=== PATIENT | female | born 1965 | race Caucasian/White ===

== ENCOUNTER 2018-07-12 19:59 | Inpatient (IN) ==
[2018-07-12] MEDS ORDERED: Morphine Inj 4 MG/ML Vial ONE ×2 (20:05→20:44)
[2018-07-12] MEDS ORDERED: Diphtheria/Tetanus/Pertussis Vaccine Inj 0.5 ML Syringe IM ONE (20:27)
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
[2018-07-12 21:02] LABS: Baso % (Auto) 0.1 % (0.0-2.0); Eos # (Auto) 0.1 th/mm3 (0.0-0.4); Eos % (Auto) 1.6 % (0.0-4.0); Hematocrit 40.8 % (35.0-46.0); Hemoglobin 14.1 gm/dL (11.6-15.3); Lymph # (Auto) 1.6 th/mm3 (1.0-4.8); Lymph % (Auto) 18.7 % (9.0-44.0); Mean Corpuscular HGB Conc 34.6 % (32.0-36.0); Mean Corpuscular Hemoglobin 28.8 pg (27.0-34.0); Mean Corpuscular Volume 83.1 fL (80.0-100.0); Mean Platelet Volume 7.2 fL (7.0-11.0); Mono # (Auto) 0.6 th/mm3 (0.0-0.9); Mono % (Auto) 7.1 % (0.0-8.0); Neut # (Auto) 6.1 th/mm3 (1.8-7.7); Neut % (Auto) 72.5 % (16.0-70.0); Platelet Count 202 th/mm3 (150-450); Red Blood Count 4.91 mil/mm3 (4.00-5.30); White Blood Count 8.4 th/mm3 (4.0-11.0)
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
[2018-07-12 21:12] LABS: Activated Partial Thrombo Time 23.9 sec (24.3-30.1)
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
[2018-07-12] MEDS ORDERED: Ketorolac Inj 30 MG/ML (IVP) Vial IV.PUSH PRN (22:12)
[2018-07-12] MEDS: Morphine Sulfate Inj 2 MG/ML Vial IV.PUSH PRN (22:43)
[2018-07-13] MEDS: Pantoprazole Inj 40 MG Vial IV.PUSH SCH ×3 (00:32→22:47)
[2018-07-13] MEDS: Sod Chloride 0.9% Inj 1,000 ML IV.CONT SCH ×5 (00:32→23:41)
[2018-07-13] MEDS: Morphine Sulfate Inj 2 MG/ML Vial IV.PUSH PRN ×5 (01:49→20:41)
[2018-07-13 03:33] LABS: Baso % (Auto) 0.3 % (0.0-2.0); Eos % (Auto) 0.3 % (0.0-4.0); Hematocrit 37.6 % (35.0-46.0); Hemoglobin 12.4 gm/dL (11.6-15.3); Lymph # (Auto) 0.8 th/mm3 (1.0-4.8); Lymph % (Auto) 6.6 % (9.0-44.0); Mean Corpuscular HGB Conc 33.1 % (32.0-36.0); Mean Corpuscular Hemoglobin 28.4 pg (27.0-34.0); Mean Corpuscular Volume 85.7 fL (80.0-100.0); Mean Platelet Volume 7.2 fL (7.0-11.0); Mono # (Auto) 0.8 th/mm3 (0.0-0.9); Mono % (Auto) 6.4 % (0.0-8.0); Neut # (Auto) 10.7 th/mm3 (1.8-7.7); Neut % (Auto) 86.4 % (16.0-70.0); Platelet Count 179 th/mm3 (150-450); Red Blood Count 4.39 mil/mm3 (4.00-5.30); Red Cell Distribution Width 16.2 % (11.6-17.2); White Blood Count 12.3 th/mm3 (4.0-11.0)
[2018-07-13 04:12] LABS: Alanine Aminotransferase 20 U/L (10-53); Albumin 3.2 g/dL (3.4-5.0); Anion Gap 10 meq/L (5-15); Aspartate Aminotransferase 30 U/L (15-37); Blood Urea Nitrogen 16 mg/dL (7-18); Calcium 7.9 mg/dL (8.5-10.1); Carbon Dioxide 22.7 meq/L (21.0-32.0); Chloride 108 meq/L (98-107); Glomerular Filtration Rate 55 mL/min (>89); Glucose,Random 112 mg/dL (74-106); Potassium 3.9 meq/L (3.5-5.1); Sodium 141 meq/L (136-145)
[2018-07-13 04:15] LABS: Alkaline Phosphatase 62 U/L (45-117); Total Protein 6.9 g/dL (6.4-8.2)
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
[2018-07-13] MEDS: Senna/Docusate Sodium 8.6/50 MG Tablet PO SCH ×2 (08:02→20:38)
[2018-07-13] MEDS ORDERED: Dicyclomine Inj 20 MG/2 ML Ampul IM PRN (08:06)
[2018-07-13] MEDS: Lidocaine 5% Patch T-DERMAL SCH (09:06)
[2018-07-13] MEDS: Methocarbamol 500 MG Tablet PO SCH ×4 (09:06→21:51)
[2018-07-13] MEDS: Lisinopril 20 MG Tablet PO SCH (09:06)
[2018-07-13] MEDS: Venlafaxine XR 75 MG Capsule PO SCH (09:06)
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
[2018-07-14] MEDS: Morphine Sulfate Inj 2 MG/ML Vial IV.PUSH PRN ×6 (00:53→23:21)
[2018-07-14] MEDS: Methocarbamol 500 MG Tablet PO SCH ×3 (06:04→21:25)
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
[2018-07-14] MEDS: Sod Chloride 0.9% Inj 1,000 ML IV.CONT SCH ×3 (07:33→23:21)
[2018-07-14] MEDS: Senna/Docusate Sodium 8.6/50 MG Tablet PO SCH ×2 (08:03→21:25)
[2018-07-14] MEDS: Venlafaxine XR 75 MG Capsule PO SCH (08:04)
[2018-07-14] MEDS: Lisinopril 20 MG Tablet PO SCH (08:04)
[2018-07-14] MEDS: Lidocaine 5% Patch T-DERMAL SCH (08:04)
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
[2018-07-14] MEDS: Pantoprazole Inj 40 MG Vial IV.PUSH SCH ×2 (21:26→22:54)
[2018-07-15] MEDS: Morphine Sulfate Inj 2 MG/ML Vial IV.PUSH PRN (03:01)
[2018-07-15] MEDS: Methocarbamol 500 MG Tablet PO SCH (06:22)
[2018-07-15] MEDS: Sod Chloride 0.9% Inj 1,000 ML IV.CONT SCH (06:22)
[2018-07-15] MEDS ORDERED: Ketorolac Inj 30 MG/ML (IVP) Vial IV.PUSH PRN (06:50)
[2018-07-15] MEDS: Lisinopril 20 MG Tablet PO SCH (08:32)
[2018-07-15] MEDS: Lidocaine 5% Patch T-DERMAL SCH (08:33)
[2018-07-15] MEDS: Venlafaxine XR 75 MG Capsule PO SCH (08:33)
[2018-07-15] MEDS: Senna/Docusate Sodium 8.6/50 MG Tablet PO SCH (08:33)
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
== END 2018-07-15 11:53 | disposition home or self-care (01) ==
LOC: NEPI 19:59 → NEDA 19:59 → EDBD 22:12 → N07 23:21
PROVIDERS: ADMIT Surgery; ATTEND Surgery